=== PATIENT | female | born 1965 | race Two or more races ===

== ENCOUNTER 2018-01-24 17:08 | Emergency (ER) | payer OTHER ==
[~2018-01-24] VITALS: Ht 162.6 cm; Wt 62.1 kg
[~2018-01-24 17:08] MED LIST: BUTA1CAP; ESCI5TAB; HYDR12.55; LEVO50TA12; LISI-658; METO25TA3; SULF1TAB48
--- NOTE | 2018-01-24 18:01 | NUR ---
MUKESH PALMER AT BEDSIDE FOR EVAL.
--- NOTE | 2018-01-24 18:15 | NUR ---
WILLOWER AT BEDSIDE FOR BLOOD DRAW.
[2018-01-24 18:19] LABS: BASOPHILS # (AUTO) 0.1 /CMM (0.0-0.2); BASOPHILS % (AUTO) 2.2 % (0.0-2.0); EOSINOPHILS % (AUTO) 3.9 % (0.0-6.0); HEMATOCRIT 39 % (33-45); LYMPHOCYTES # (AUTO) 1.5 /CMM (0.8-4.8); MEAN CORPUSCULAR HGB CONC 33 g/dl (31.0-36.0); MEAN CORPUSCULAR VOLUME 89 fL (82-100); MONOCYTES # (AUTO) 0.3 /CMM (0.1-1.30); MONOCYTES % (AUTO) 4.5 % (2.0-12.0); NEUTROPHILS # (AUTO) 3.5 /CMM (1.8-8.9); NEUTROPHILS % (AUTO) 62.4 % (43.0-81.0); PLATELET COUNT (AUTO) 143 /CMM (150-450); RDW COEFFICIENT OF VARIATION 11.9 (11.5-15.0); RED BLOOD CELL COUNT(AUTO) 4.36 MIL/uL (4.0-5.2); WHITE BLOOD COUNT (AUTO) 5.6 K/uL (4.3-11.0)
[2018-01-24 18:26] LABS: APPEARANCE,URINE Clear (CLEAR); BILIRUBIN,URINE Negative (NEGATIVE); BLOOD, URINE Trace-intact Ery/uL (NEGATIVE); COLOR,URINE Yellow (YELLOW); KETONES,URINE Negative (NEGATIVE); LEUKOCYTE ESTERASE ,URINE Negative (NEGATIVE); NITRITE, URINE Negative (NEGATIVE); PH,URINE 6.5 (5.0-8.0); PROTEIN,URINE Negative (NEGATIVE); UGLUCOSE Negative (NEGATIVE); UROBILINOGEN,URINE 0.2 EU/dL (0.2)
[2018-01-24 18:32] LABS: BACTERIA,URINE Rare /HPF (None Seen); RBC,URINE 0-2 /HPF (0-2); SQUAMOUS EPITHELIAL CELL,UR Few /HPF (None Seen); WBC,URINE 0-2 /HPF (0-3)
[2018-01-24 18:33] LABS: ALBUMIN 3.7 g/dL (3.4-5.0); BILIRUBIN,TOTAL 0.2 mg/dL (0.2-1.0); CALCIUM, SERUM 9.1 mg/dL (8.5-10.1); CREATININE 0.6 mg/dL (0.6-1.3); POTASSIUM 3.9 mmol/L (3.5-5.1)
--- NOTE | 2018-01-24 19:25 | NUR ---
Patient discharged to home in stable condition. Written and verbal after care instructions given. Patient verbalizes understanding of instruction.
[2018-01-24 19:26] VITALS: BP 150/80
== END 2018-01-24 19:28 | disposition home or self-care (01) ==
LOC: ER 17:10
DX: I10 Essential (primary) hypertension (principal); R00.1 Bradycardia, unspecified; Z88.5 Allergy status to narcotic agent; Z88.6 Allergy status to analgesic agent
CPT/HCPCS: 36415; 80048; 80076; 81001; 85025; 93005; 99285; A4606; Z7610; 81000-TC

== ENCOUNTER 2021-07-07 17:36 | Emergency (ER) | payer OTHER ==
[~2021-07-07] VITALS: Ht 162.6 cm; Wt 73.0 kg
--- NOTE | 2021-07-07 17:50 | NUR ---
PATIENT HAS BILATERAL LOWER LEG SWELLING. NO PITTING EDEMA.
--- NOTE | 2021-07-07 17:50 | NUR ---
[id number] FROM CLINIC C/O CHEST AND L SIDED "THIGHTNESS" S/P IV IRON INFUSION. PATIENT WAS GIVEN ALLERGY MEDICINE PRIOR TO TRANSFER. VITALS CHECKED AND PLACED COMFORTABLY IN BED.
--- NOTE | 2021-07-07 18:40 | NUR ---
BROUGHT PATIENT TO RADIOLOGY DEPT FOR XRAY AND CT SCAN BY [employer].
[2021-07-07 20:41] VITALS: BP 109/68
--- NOTE | 2021-07-07 20:41 | NUR ---
Patient discharged to home in stable condition. Written and verbal after care instructions given. Patient verbalizes understanding of instruction. Pt ambulatory with a steady gait
== END 2021-07-07 20:42 | disposition home or self-care (01) ==
LOC: ER 18:01
DX: R00.2 Palpitations (principal); T45.4X5A Adverse effect of iron and its compounds, initial encounter; R53.1 Weakness; R51.9 Headache, unspecified; I10 Essential (primary) hypertension; Z88.6 Allergy status to analgesic agent; Z79.899 Other long term (current) drug therapy; Y92.89 Other specified places as the place of occurrence of the external cause
CPT/HCPCS: 70450-TC; 73502

== ENCOUNTER 2022-02-25 15:34 | Emergency (ER) | payer OTHER ==
[~2022-02-25] VITALS: Ht 162.6 cm; Wt 63.0 kg
[2022-02-25 15:52] VITALS: BP 121/80
[2022-02-25] MEDS ORDERED: FLUT16SP16 BNOSTRILS (16:26)
[2022-02-25] MEDS ORDERED: LOPE2TAB25 PO (16:26)
[2022-02-25] MEDS ORDERED: PSEU120T83 PO (16:26)
--- NOTE | 2022-02-25 16:41 | NUR ---
Patient discharged to home in stable condition. Written and verbal after care instructions given. Patient verbalizes understanding of instruction.
== END 2022-02-25 16:42 | disposition home or self-care (01) ==
LOC: ER 15:57
DX: H11.31 Conjunctival hemorrhage, right eye (principal); J32.9 Chronic sinusitis, unspecified; R51.9 Headache, unspecified; I10 Essential (primary) hypertension; Z88.8 Allergy status to other drugs, medicaments and biological substances; Z79.899 Other long term (current) drug therapy